=== PATIENT | male | born 1955 | race Caucasian/White ===

== ENCOUNTER 2018-02-21 06:56 | Day surgery (SDC) | payer BC ==
[2018-02-21] MEDS ORDERED: fentaNYL 100 MCG/2 ML SDV ONE (07:36)
[2018-02-21] MEDS ORDERED: Midazolam 1 MG/ML 2 ML SDV ONE (07:36)
[2018-02-21] MEDS ORDERED: Propofol 200 MG/20 ML SDV ONE (07:36)
[2018-02-21] MEDS ORDERED: Lactated Ringers 1,000 ML IV SCH (07:45)
--- NOTE | 2018-02-24 09:55 | OR ---
DATE OF PROCEDURE: 02/21/2018 PREOPERATIVE DIAGNOSIS: Colon cancer screening. POSTOPERATIVE DIAGNOSIS: Diverticulosis. PROCEDURE: Colonoscopy to the cecum. SURGEON: Michael Kwan MD. [employer] SALESPERSON: Moraima Parnell [id number] ANESTHESIA: IV anesthesia with monitored anesthesia care. INDICATION: This 62-year-old white male is here for a colonoscopy for colon cancer screening. His last colonoscopic exam he says was done 10 years ago. I counseled him for the procedure including risks and alternatives, and he gave his informed consent to proceed. DESCRIPTION OF PROCEDURE: The patient was placed in the left lateral decubitus position. IV anesthesia was administered by the Anesthesia Service. Time-out was held. A rectal exam was performed, which was unremarkable. The flexible video Olympus colonoscope was introduced through his anus, up his rectum, and out his colon all way to the cecum. Once the cecum was reached, the scope was slowly withdrawn, examining the mucosa throughout. No mucosal abnormalities noted until we reached the left colon. Here, we saw a few scattered left-sided diverticula. There was no bleeding or inflammation associated with any of them. The scope was brought back into the rectum, where it was retroflexed. The distal rectum appeared unremarkable. The scope was straightened and removed. He tolerated the procedure well. Michael Kwan MD /[id number]
== END 2018-02-21 10:30 | disposition home or self-care (01) ==
LOC: JP.SDS 06:56
PROVIDERS: ATTEND Surgery
DX: Z12.11 Encounter for screening for malignant neoplasm of colon (principal); K57.30 Diverticulosis of large intestine without perforation or abscess without bleeding; I10 Essential (primary) hypertension; R73.03 Prediabetes; Z79.899 Other long term (current) drug therapy; Z98.890 Other specified postprocedural states
CPT/HCPCS: 45378; J2250; J2704; J3010; J7120